=== PATIENT | female | born 1960 | race Caucasian/White ===

== ENCOUNTER → 2024-11-14 15:57 | Outpatient (CLI) | payer OTHER, SELFPAY ==
--- NOTE | 2024-11-14 16:01 | DI.US.S_ITS ---
PROCEDURE: US PELVIC COMPLETE INDICATIONS: MENIPAUSE TECHNIQUE: Real-time scanning was performed of the pelvic organs, with image documentation. Additional endovaginal scanning was necessary due to incomplete visualization of the adnexal and endometrial structures by transabdominal scanning. COMPARISON: None. FINDINGS: Uterus: Uterus is anteverted and normal in size at 6.1 x 4.3 x 3.1 cm. The myometrium is heterogeneous. The endometrium measures 4.3 mm combined thickness. A few scattered myometrial cysts are noted, largest measuring 2 mm. Posterior to the cervix is a heterogeneous solid mass with vascularity measuring 2.2 x 2.2 x 1.1 cm. The cervical canal is thickened and heterogeneous. Ovaries: The right ovary measures 2.7 x 1.0 x 2.1 cm, with a calculated ovarian volume of 3.0 cc. The left ovary measures 1.8 x 0.8 x 1.5 cm, with a calculated ovarian volume of 1.1 cc. The ovaries have a normal sonographic appearance. Calcifications are seen in the bilateral ovaries. Less than 12 follicles can be seen in each ovary. Complex solid/cystic structure with vascularity in the right lower quadrant measuring 4.4 x 3.8 x 1.7 cm. The right ovary appears separate from this lesion. Other: No pathologic free abdominal or pelvic fluid. Postvoid residual of 199 cc. IMPRESSION: Complex right lower quadrant/right adnexal solid/cystic structure measuring up to 4.4 cm. This appears to be separate from the right ovary. Mass posterior to the cervix measuring up to 2.2 cm. Recommend MRI of the pelvis gynecology protocol and gynecology consultation for further evaluation. Postvoid residual of 200 cc, correlate for bladder outlet obstruction. Endometrium is normal in thickness. We strive to produce accurate, complete, and clear reports of imaging services. To assist us in improving patient care, this report was composed using standard report templates and voice recognition software. Therefore, it may contain abnormal punctuation, insertions and/or omissions. Occasional wrong-word or sound-alike substitutions may occur. Though we review the report and make efforts to correct it, we do recommend that the report be read carefully in proper context to recognize any text inaccuracies. Dictated by: Vinay Pate M.D. on 11/15/2024 at 8:23 Approved by: Vinay Pate M.D. on 11/15/2024 at 8:30
== END ==
PROVIDERS: Referring Provider Nurse Practitioner; Visit Provider Nurse Practitioner
DX: R33.9 Retention of urine, unspecified (principal); R19.09 Other intra-abdominal and pelvic swelling, mass and lump; N95.8 Other specified menopausal and perimenopausal disorders
CPT/HCPCS: 76830; 76856

== ENCOUNTER → 2024-11-14 16:01 | Outpatient (CLI) | payer OTHER, SELFPAY ==
--- NOTE | 2024-11-14 16:03 | DI.MG.S_ITS ---
MM screening mammo BI: 11/14/2024. BI-RADS: 2 CLINICAL: 64-year old female for bilateral screening mammogram. Tyrer-Cuzick lifetime risk of 18.9%. Current reported family history of breast cancer: mother. PRIOR EXAMS: 01/2019. MAMMOGRAPHY TECHNIQUE: 2D and 3D (tomosynthesis) digital mammographic views obtained, with additional images as needed for full coverage. Current study was also evaluated with a Computer Aided Detection (CAD) system. DENSITY C. The breasts are heterogeneously dense, which may obscure small masses. MAMMOGRAPHY FINDINGS Right: No suspicious mass, asymmetry, microcalcification, or other abnormality seen. Left: Benign-appearing calcifications noted on the left. There are no suspicious masses, calcifications, or other findings in the breast. IMPRESSION: Right * No evidence of malignancy. Left * No evidence of malignancy with benign findings. RECOMMENDATIONS Bilateral * Annual screening mammography. OVERALL ASSESSMENT CATEGORY BI-RADS-2: Benign. The [employer] recommends annual screening mammography beginning at age 40 for women with average risk of breast cancer. ELECTRONICALLY SIGNED: Oc Kelley M.D. on 11/15/2024 at 07:37:33 AM PT Interpreting Station ID: [id number]
== END ==
PROVIDERS: Referring Provider Family Medicine; Visit Provider Family Medicine
DX: Z12.31 Encounter for screening mammogram for malignant neoplasm of breast (principal); R92.1 Mammographic calcification found on diagnostic imaging of breast; R92.333 Mammographic heterogeneous density, bilateral breasts; Z80.3 Family history of malignant neoplasm of breast
CPT/HCPCS: 77063; 77067

== ENCOUNTER → 2024-11-20 15:30 | Outpatient (CLI) | payer OTHER, SELFPAY ==
--- NOTE | 2024-11-20 16:05 | DI.MRI.S_ITS ---
PROCEDURE: MR PELVIS WO/W CON INDICATIONS: PELVIC MASS TECHNIQUE: Coronal HASTE, sagittal breath-hold T2 FSE; axial T1 FSE with and without fat saturation through the pelvis. Optional long- and short-axis uterine nonbreath-hold T2 FSE through the uterus. Sagittal or axial dynamic VIBE during administration of contrast. Post-contrast axial or coronal VIBE/2-D FLASH with fat saturation from the iliac crests to the symphysis. Optional diffusion weighted imaging and ADC may be performed. COMPARISON: [facility], , US PELVIC COMPLETE, 11/14/2024, 16:22. FINDINGS: Image quality: Diagnostic Lower abdomen: No bowel obstruction or lower abdomen. No pathologic ascites Bladder: Unremarkable Reproductive organs: Endometrium is heterogeneous measuring 4-5 mm in thickness. The junctional zone measures 0.8 cm. More focal endometrial thickening at the fundus with heterogeneity measuring 1 cm (/72). Prominent endocervix measuring 0.7 cm in thickness. Possible 0.6 cm filling defect near the external os (3/13). The posterior uterine mass is a FIGO 5 fibroid measuring 1.9 x 1.4 cm In the right adnexa, there is a 3.7 x 2.9 cm lesion with multiple loculations and enhancing septations (/64). Rectum: Unremarkable Vessels and lymph nodes: No aneurysmal vessel identified. No pathologic lymph nodes by size criteria Pelvic wall: Unremarkable Bones: No aggressive appearing osseous abnormality. IMPRESSION: The right adnexal lesion corresponds to a multiloculated cystic lesion with multiple enhancing septations. No definite solid logical on postcontrast images. MRI O-RADS 3. The posterior uterine lesion corresponds to a FIGO 5 fibroid. Endometrium is heterogeneous and borderline thickened up to 5 mm. There is more focal signal abnormality and enhancement abnormality at the fundus (20/72). This could represent focal endometrial thickening or underlying lesion versus submucosal fibroid. This area is obscured by motion artifact on the ramirez T2 sagittal images. Prominent thickness also seen of the endocervix with a possible 0.6 cm filling defect near the external os. Correlate with any bleeding symptoms and consider sampling if indicated. Other findings above. Dictated by: Bigg Johnson M.D. on 11/21/2024 at 10:45 Approved by: Bigg Johnson M.D. on 11/21/2024 at 11:45
== END ==
PROVIDERS: Referring Provider Family Medicine; Visit Provider Family Medicine
DX: R19.00 Intra-abdominal and pelvic swelling, mass and lump, unspecified site (principal); D25.2 Subserosal leiomyoma of uterus
CPT/HCPCS: 72197; A9579

== ENCOUNTER → 2024-11-26 08:52 | Outpatient (CLI) | payer OTHER, SELFPAY ==
[2024-11-26 11:07] LABS: Cancer Antigen 125 < 5.5 U/mL (0-35)
[2024-11-27 07:09] LABS: Alpha Fetoprotein 4.3 ng/mL (0.0-9.2)
[2024-11-28 11:13] LABS: Human Epididymis Prot 4 59.3 pmol/L (0.0-96.5)
[2024-11-28 13:36] LABS: Estradiol 66.4 pg/mL (0.0-54.7); Estriol,Serum <0.2 ng/mL (.); Estrone,Serum 52 pg/mL (0-125)
== END ==
LOC: LAB 08:53
PROVIDERS: PCP Family Medicine; Referring Provider Obstetrics & Gynecology; Visit Provider Obstetrics & Gynecology
DX: R19.00 Intra-abdominal and pelvic swelling, mass and lump, unspecified site (principal)
CPT/HCPCS: 36415; 82105; 82378; 82670; 82677; 82679; 83520; 84403; 86304; 86305

== ENCOUNTER 2025-01-06 11:57 | Emergency (ER) | payer OTHER, SELFPAY ==
[2025-01-06 13:01] VITALS: BP 149/79; PULSE 68; RESP 18; TEMP 36.6; O2SAT 99; BMI 24.6
--- NOTE | 2025-01-06 13:04 | DI.RAD.S_ITS ---
PROCEDURE: XR CHEST 1V INDICATIONS: Shortness of breath TECHNIQUE: One view of the chest was acquired. COMPARISON: None. FINDINGS: Surgical changes and devices: None. Lungs and pleura: Lungs are clear. No pleural effusions or pneumothorax. Mediastinum: Mediastinal contours appear normal. Heart size is normal. Bones and chest wall: No suspicious bony lesions. Overlying soft tissues appear unremarkable. IMPRESSION: No acute cardiopulmonary pathology. Dictated by: Thomas Saleh M.D. on 01/06/2025 at 14:16 Approved by: Thomas Saleh M.D. on 01/06/2025 at 14:16
--- NOTE | 2025-01-06 13:06 | EKG_ITS ---
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
[2025-01-06 13:32] LABS: Add Manual Diff / Slide Review NO; Hematocrit 43.1 % (36-46); Hemoglobin 15.2 g/dL (12.0-16.0); Lymphocytes Absolute Auto 1800 /uL (1100-4500); Mean Corpuscular HGB Conc 35.1 % (30-36); Mean Corpuscular Hemoglobin 31.4 PG (26-34); Mean Corpuscular Volume 89.3 fL (80-100); Platelet Count 226 X10^3/uL (150-400)
[2025-01-06 13:34] LABS: Lactate (Lactic Acid) 0.9 mmol/L (0.7-2.1)
[2025-01-06 13:35] LABS: Alanine Aminotransferase 25 IU/L (<35); Albumin 4.5 g/dL (3.5-5.0); Albumin Globulin Ratio 1.5 (1.0-2.8); Alkaline Phosphatase 58 U/L (38-126); Blood Urea Nitrogen 8 mg/dL (7-17); Calcium 9.0 mg/dL (8.4-10.2); Carbon Dioxide 26 mmol/L (22-32); Chloride 102 mmol/L (98-107); Estimated Glomerular Filt Rate > 60 mL/min (>60); Globulin 3.1 g/dL (1.7-4.1); Glucose 90 mg/dL (70-99); HEMOLYSIS < 15 (0-50); Potassium 3.9 mmol/L (3.4-5.1); Sodium 135 mmol/L (137-145); Total Protein 7.6 g/dL (6.3-8.2)
[2025-01-06 13:47] LABS: NT-proBNP (BNP-Adult 18+) 65 pg/mL (<125); Troponin I < 0.012 ng/mL (0.01-0.034)
[2025-01-06 13:54] LABS: INR 1.0 (0.9-1.3); Prothrombin Time 11.2 SECONDS (9.4-12.5)
[2025-01-06 17:17] VITALS: BP 141/70; PULSE 60; RESP 16; O2SAT 98
--- NOTE | 2025-01-08 06:17 | ED.SOB ---
HPI - SOB/Dyspnea General Chief Complaint: Shortness of Breath/Dyspnea Stated Complaint: SOB Time Seen by Provider: 01/06/25 18:01 Source: patient Mode of arrival: Ambulatory Related Data Home Medications ?Medication ?Instructions ?Recorded ?Confirmed cyclosporine 0.05 % eye drops in a 1 drp EYE-BOTH BID 07/28/23 01/06/25 dropperette progesterone micronized 200 mg 200 mg PO BEDTIME 11/26/24 01/06/25 capsule azithromycin 250 mg tablet mg PO 01/06/25 01/06/25 Allergies Allergy/AdvReac Type Severity Reaction Status Date / Time morphine AdvReac Intermediate Migraine Verified 01/06/25 13:01 Patient History Medical History (Updated 01/06/25 @ 20:10 by Moira Hoffman RN) Postmenopausal HRT (hormone replacement therapy) Postmenopausal bleeding Pelvic mass in female Social History Smoking Status: Never smoker Smoking Status: Never smoker Exam Initial Vital Signs Initial Vital Signs: Vital Signs Temperature 97.8 F 01/06/25 13:01 Pulse Rate 68 01/06/25 13:01 Respiratory Rate 18 01/06/25 13:01 Blood Pressure 149/79 H 01/06/25 13:01 Pulse Oximetry 99 01/06/25 13:01 Oxygen Delivery Method Room Air 01/06/25 13:01 MDM - SOB/Dyspnea Lab Data 01/06/25 13:09 01/06/25 13:09 Labs: Lab Results 01/06/25 Range/Units 13:09 WBC 7.5 (4.5-11.0) X10^3/uL RBC 4.83 (4.0-5.2) X10^6/uL Hgb 15.2 (12.0-16.0) g/dL Hct 43.1 (36-46) % MCV 89.3 (80-100) fL MCH 31.4 (26-34) PG MCHC 35.1 (30-36) % RDW 13.1 (11.6-14.8) % Plt Count 226 (150-400) X10^3/uL Neut % (Auto) 66.8 (50-75) % Lymph % (Auto) 23.7 L (25-40) % [place] % (Auto) 6.4 (3-14) % Eos % (Auto) 2.3 (2-4) % Baso % (Auto) 0.8 (0-2) % Neut # (Auto) 5000 (1575-3815) /uL Lymph # (Auto) 1800 (8215-9659) /uL [place] # (Auto) 500 (0-900) /uL Eos # (Auto) 200 (0-450) /uL Baso # (Auto) 100 (0-100) /uL PT 11.2 (9.4-12.5) SECONDS INR 1.0 (0.9-1.3) Sodium 135 L (137-145) mmol/L Potassium 3.9 (3.4-5.1) mmol/L Chloride 102 (98-107) mmol/L Carbon Dioxide 26 (22-32) mmol/L BUN 8 (7-17) mg/dL Creatinine 0.68 (0.52-1.04) mg/dL Estimated GFR > 60 (>60) mL/min BUN/Creatinine Ratio 11.8 (6-22) Glucose 90 (70-99) mg/dL Lactate 0.9 (0.7-2.1) mmol/L Calcium 9.0 (8.4-10.2) mg/dL Total Bilirubin 0.7 (0.2-1.3) mg/dL AST 29 (14-36) IU/L ALT 25 (<35) IU/L Alkaline Phosphatase 58 (38-126) U/L Troponin I < 0.012 (0.01-0.034) ng/mL NT-Pro-B Natriuret Pep 65 (<125) pg/mL Total Protein 7.6 (6.3-8.2) g/dL Albumin 4.5 (3.5-5.0) g/dL Globulin 3.1 (1.7-4.1) g/dL Albumin/Globulin Ratio 1.5 (1.0-2.8) Discharge Plan Departure Patient Disposition: Left Without Being Seen Clinical Impression: Patient left without being seen Prescriptions: No Action cyclosporine 0.05 % dropperette 1 drp EYE-BOTH BID azithromycin 250 mg tablet PO progesterone micronized 200 mg capsule 200 mg PO BEDTIME
== END 2025-01-06 20:10 | disposition left against medical advice (07) ==
PROVIDERS: Family Medicine; Emergency Provider Family Medicine; PCP Family Medicine
DX: R05.9 Cough, unspecified (principal); R07.89 Other chest pain; R11.0 Nausea; R53.83 Other fatigue
CPT/HCPCS: 36415; 71045; 80053; 83605; 83880; 84484; 85025; 85610; 93005; 99283

== ENCOUNTER → 2025-01-08 09:59 | Outpatient (CLI) | payer OTHER, SELFPAY ==
[2025-01-08 11:07] LABS: Add Manual Diff / Slide Review NO; Hematocrit 43.2 % (36-46); Hemoglobin 15.1 g/dL (12.0-16.0); Lymphocytes Absolute Auto 1600 /uL (1100-4500); Mean Corpuscular HGB Conc 34.9 % (30-36); Mean Corpuscular Hemoglobin 31.5 PG (26-34); Mean Corpuscular Volume 90.4 fL (80-100); Platelet Count 236 X10^3/uL (150-400)
[2025-01-08 11:47] LABS: TSH w/ Reflex to FT4 2.10 uIU/mL (0.47-4.68)
== END ==
PROVIDERS: PCP Family Medicine; Referring Provider Family Medicine; Visit Provider Family Medicine
DX: R06.02 Shortness of breath (principal); R20.2 Paresthesia of skin; R29.2 Abnormal reflex
CPT/HCPCS: 36415; 84443; 85025; 85379; 85651; 86140

== ENCOUNTER 2025-05-16 13:26 | Emergency (ER) | payer OTHER, SELFPAY ==
[2025-05-16] VITALS (21 sets, daily range): BP systolic 106–139; BP diastolic 57–73; PULSE 58–74; RESP 17–34; TEMP 36.6; O2SAT 93–98; BMI 25.1
--- NOTE | 2025-05-16 13:33 | EKG_ITS ---
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
--- NOTE | 2025-05-16 13:38 | DI.RAD.S_ITS ---
PROCEDURE: XR CHEST 1V INDICATIONS: Chest Pain TECHNIQUE: One view of the chest was acquired. COMPARISON: [facility], CR, XR CHEST 1V, 01/06/2025, 13:51. FINDINGS: Surgical changes and devices: None. Lungs and pleura: Lungs are clear. No pleural effusions or pneumothorax. Mediastinum: Mediastinal contours appear normal. Heart size is normal. Bones and chest wall: No suspicious bony lesions. Age-appropriate bony degenerative changes are seen. Overlying soft tissues appear unremarkable. IMPRESSION: Single-view chest within normal limits, similar to prior. Dictated by: Andreas Torres M.D. on 05/16/2025 at 12:52 Approved by: Andreas Torres M.D. on 05/16/2025 at 12:52
[2025-05-16 13:56] LABS: Add Manual Diff / Slide Review NO; Hematocrit 43.7 % (36-46); Hemoglobin 15.1 g/dL (12.0-16.0); Lymphocytes Absolute Auto 1600 /uL (1100-4500); Mean Corpuscular HGB Conc 34.6 % (30-36); Mean Corpuscular Hemoglobin 30.5 PG (26-34); Mean Corpuscular Volume 88.2 fL (80-100); Platelet Count 230 X10^3/uL (150-400)
[2025-05-16 14:05] LABS: INR 1.0 (0.9-1.3); Prothrombin Time 10.9 SECONDS (9.4-12.5)
[2025-05-16] MEDS: ASPIRIN 81 MG CHEW TAB 324 MG PO (14:06)
[2025-05-16 14:07] LABS: PTT Partial Thromboplastin Tim 27 SECONDS (25.1-36.5)
[2025-05-16 14:11] LABS: Alanine Aminotransferase 53 IU/L (<35); Albumin 4.7 g/dL (3.5-5.0); Albumin Globulin Ratio 1.4 (1.0-2.8); Alkaline Phosphatase 46 U/L (38-126); Blood Urea Nitrogen 12 mg/dL (7-17); Calcium 9.0 mg/dL (8.4-10.2); Carbon Dioxide 18 mmol/L (22-32); Chloride 105 mmol/L (98-107); Creatine Kinase 47 U/L (30-135); Estimated Glomerular Filt Rate > 60 mL/min (>60); Globulin 3.3 g/dL (1.7-4.1); Glucose 133 mg/dL (70-99); Lipase 89 U/L (23-300); Magnesium 2.2 mg/dL (1.6-2.3); Potassium 4.4 mmol/L (3.4-5.1); Sodium 135 mmol/L (137-145); Total Protein 8.0 g/dL (6.3-8.2)
[2025-05-16 14:21] LABS: NT-proBNP (BNP-Adult 18+) 25 pg/mL (<125)
[2025-05-16 14:22] LABS: HEMOLYSIS 92 (0-50)
[2025-05-16 14:23] LABS: Troponin I 0.013 ng/mL (0.01-0.034)
--- NOTE | 2025-05-16 16:53 | ED.CHESTPAIN ---
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 4 days ago began having chest pain. Had an EKG 2 days ago that was unremarkable. TO control pain would need to lay on bed and folucs on calmin ther heart. Today exhausted with pain recurrent this afternoon. Pain is described as super tight heart muscle and very uncomfortable dull and heaviness after that. Bothers her if talking too much and not intentionally breathing. Notes she doesn't move too fast with her guillian barre so isn't sure if increased activity increases pain. Related Data Home Medications ?Medication ?Instructions ?Recorded ?Confirmed cyclosporine 0.05 % eye drops in a 1 drp EYE-BOTH BID 07/28/23 01/06/25 dropperette progesterone micronized 200 mg 200 mg PO BEDTIME 11/26/24 01/06/25 capsule azithromycin 250 mg tablet mg PO 01/06/25 01/06/25 Allergies Allergy/AdvReac Type Severity Reaction Status Date / Time morphine AdvReac Intermediate Migraine Verified 05/16/25 13:40 Review of Systems Review of Systems Narrative: Pertinent positive and negative findings as per HPI Patient History Medical History Abnormal pelvic ultrasound Postmenopausal HRT (hormone replacement therapy) Postmenopausal bleeding Pelvic mass in female Exam Initial Vital Signs Initial Vital Signs: Vital Signs Temperature 97.9 F 05/16/25 13:40 Pulse Rate 74 05/16/25 13:40 Respiratory Rate 18 05/16/25 13:40 Blood Pressure 124/68 05/16/25 13:40 Pulse Oximetry 98 05/16/25 13:40 Oxygen Delivery Method Room Air 05/16/25 13:40 General: Older appearing, fatigued no acute distress HEENT: Moist mucous membranes, normal sclera with reactive pupils, Respiratory: Lungs are clear to auscultation, no wheezing no rales no rhonchi. Full and symmetrical air movement Cardiac: Regular rate and rhythm no murmurs no bruits Chest: Minor reproducible tenderness in the lower left sternal border Abdomen: Soft, mild tenderness in the epigastrium radiating up into the substernal area. No rebound or guarding Skin: Warm and dry, no rashes Neurologic: Grossly neurologically intact with no obvious asymmetries or abnormalities Extremities: No trauma, well perfused Psych: Cooperative, appropriate insight and affect Course Orders Ordered: ED Orders 05/16/25 13:33 EKG-12 Lead Stat 05/16/25 13:35 Complete Blood Count AUTO DIFF Stat Comprehensive Metabolic Panel Stat Lipase Stat Magnesium Stat NT-proBNP (BNP-Adult 18+) Stat PTT Partial Thromboplastin Corey Stat Prothrombin Time INR Stat Troponin & CK Cardiac Panel Stat 05/16/25 13:38 XR chest 1V Stat 05/16/25 16:58 Troponin I Stat Discontinued Medications Aspirin (Aspirin 81 Mg Chew Tab) 324 mg PO NOW ONE Stop: 05/16/25 13:39 Last Admin: 05/16/25 14:06 Dose: 324 mg Documented By: CTS Vital Signs Vital signs: Vital Signs - 8 hr 05/16/25 13:40 05/16/25 14:18 05/16/25 14:30 Temperature 97.9 F Pulse Rate 74 63 Respiratory Rate 18 19 Blood Pressure 124/68 117/65 Pulse Oximetry 98 97 Oxygen Delivery Method Room Air 05/16/25 14:30 05/16/25 14:45 05/16/25 14:45 Temperature Pulse Rate 61 63 Respiratory Rate 20 21 Blood Pressure 119/67 Pulse Oximetry 97 95 Oxygen Delivery Method 05/16/25 15:00 05/16/25 15:00 05/16/25 15:15 Temperature Pulse Rate 62 Respiratory Rate 21 Blood Pressure 117/66 116/65 Pulse Oximetry 98 Oxygen Delivery Method 05/16/25 15:15 05/16/25 15:30 05/16/25 15:30 Temperature Pulse Rate 62 60 Respiratory Rate 17 19 Blood Pressure 111/60 Pulse Oximetry 98 98 Oxygen Delivery Method 05/16/25 15:45 05/16/25 15:45 05/16/25 16:00 Temperature Pulse Rate 60 Respiratory Rate 17 Blood Pressure 116/66 111/63 Pulse Oximetry 97 Oxygen Delivery Method 05/16/25 16:00 Temperature Pulse Rate 58 L Respiratory Rate 17 Blood Pressure Pulse Oximetry 97 Oxygen Delivery Method MDM - Chest Pain Lab Data 05/16/25 13:35 05/16/25 13:35 Labs: Lab Results 05/16/25 Range/Units 13:35 WBC 6.5 (4.5-11.0) X10^3/uL RBC 4.96 (4.0-5.2) X10^6/uL Hgb 15.1 (12.0-16.0) g/dL Hct 43.7 (36-46) % MCV 88.2 (80-100) fL MCH 30.5 (26-34) PG MCHC 34.6 (30-36) % RDW 13.3 (11.6-14.8) % Plt Count 230 (150-400) X10^3/uL Neut % (Auto) 65.6 (50-75) % Lymph % (Auto) 24.5 L (25-40) % [place] % (Auto) 7.8 (3-14) % Eos % (Auto) 1.2 L (2-4) % Baso % (Auto) 0.9 (0-2) % Neut # (Auto) 4200 (3706-7220) /uL Lymph # (Auto) 1600 (5957-7050) /uL [place] # (Auto) 500 (0-900) /uL Eos # (Auto) 100 (0-450) /uL Baso # (Auto) 100 (0-100) /uL PT 10.9 (9.4-12.5) SECONDS INR 1.0 (0.9-1.3) APTT 27 (25.1-36.5) SECONDS Sodium 135 L (137-145) mmol/L Potassium 4.4 (3.4-5.1) mmol/L Chloride 105 (98-107) mmol/L Carbon Dioxide 18 L (22-32) mmol/L BUN 12 (7-17) mg/dL Creatinine 0.82 (0.52-1.04) mg/dL Estimated GFR > 60 (>60) mL/min BUN/Creatinine Ratio 14.6 (6-22) Glucose 133 H (70-99) mg/dL Calcium 9.0 (8.4-10.2) mg/dL Magnesium 2.2 (1.6-2.3) mg/dL Total Bilirubin 0.7 (0.2-1.3) mg/dL AST 56 H (14-36) IU/L ALT 53 H (<35) IU/L Alkaline Phosphatase 46 (38-126) U/L Total Creatine Kinase 47 (30-135) U/L Troponin I 0.013 (0.01-0.034) ng/mL NT-Pro-B Natriuret Pep 25 (<125) pg/mL Total Protein 8.0 (6.3-8.2) g/dL Albumin 4.7 (3.5-5.0) g/dL Globulin 3.3 (1.7-4.1) g/dL Albumin/Globulin Ratio 1.4 (1.0-2.8) Lipase 89 (23-300) U/L MDM Narrative Medical decision making narrative: CC: Chest pain Complicating co-morbidities: Guillain-[place] Data collected from: patient Differential considered: Side effects of medications, unstable angina, stable angina, GI/esophagitis complaints, consequences of her Guillain-[place] Exam documented above, pertinent findings include: Exam is relatively benign. She does have some tenderness in the lower sternum and the epigastrium Lab Test results independently reviewed as above. Pertinent findings: CBC shows no abnormality Chemistries are reassuring, AST and ALT are slightly elevated at 56 and 53 respectively. Alk-phos and bilirubin are normal First and 2nd troponins are undetectable Independently reviewed EKG: Sinus rhythm at a rate of 75 without acute ischemic changes Imaging studies independently reviewed: Chest x-ray is unremarkable Treatments: Aspirin, GI cocktail Re-evaluations: Patient notes that her body felt much more calm with a GI cocktail Discussion: 65-year-old woman with Guillain-[place] and multiple side effects and symptoms from this. He is wondering if her gabapentin might actually be causing additional problems and between her and her physicians they have been talking about weaning that down. Interestingly, skipping her 200 mg mid day dose of gabapentin seems to leave her feeling more calm has were getting ready for discharge at 7:00 p.m. this evening. There was no evidence of acute coronary syndrome. The Maalox and lidocaine cocktail seemed to help with the symptoms. That along with physical exam suggests that her chest pain is likely more GI related. We will have her try Protonix for 2 weeks and then as needed to see if this helps with the symptoms. We talked about decreasing her gabapentin and a told her that decreasing at a rate that her body tolerated, some people need a very slow taper, other people can tolerate it tapered off very quickly, is what she will need. We will ask her to follow up with her primary care physician and reassurance is given. HEART score= 2 Discharge Plan Departure Patient Disposition: Home Clinical Impression: Chest pain due to GERD Instructions: DI for Atypical Chest Pain Activity Restrictions/Additional Instructions: Thank you for coming in today Your workup does not suggest that your chest pain is related to your heart, pneumonia, electrolyte abnormalities or significant infection With the Maalox cocktail, your symptoms seemed to improve. This suggests that you are irritation is in your esophagus and stomach. I am going to give you a prescription for omeprazole to use for stomach acid reduction. I am going to suggest 2 weeks of once a day dosing and then daily as needed for symptoms returning after that. Maalox is available [id number], you can also try Tums. I went continue with the magnesium/calm as well as your MiraLax to help prevent constipation Please do follow up with your primary care physician. If you find that you are getting worse or develop any new symptoms, please feel free to return to the emergency department for further evaluation. Prescriptions: No Action cyclosporine 0.05 % dropperette 1 drp EYE-BOTH BID azithromycin 250 mg tablet PO progesterone micronized 200 mg capsule 200 mg PO BEDTIME Referrals: Jonathan Melgoza MD [Primary Care Provider, Family Practice] Stand Alone Forms: Patient Portal/API
[2025-05-16] MEDS: MAG HYDROX/ALUMINUM/SIMETH SUS 30 ML, LIDOCAINE VISCOUS 2% 15 ML PO (17:42)
[2025-05-16 17:47] LABS: Troponin I < 0.012 ng/mL (0.01-0.034)
== END 2025-05-16 19:05 | disposition home or self-care (01) ==
PROVIDERS: Emergency Medicine; Emergency Provider Emergency Medicine; PCP Family Medicine
DX: R07.89 Other chest pain (principal); K21.9 Gastro-esophageal reflux disease without esophagitis; G61.0 Guillain-Barre syndrome
CPT/HCPCS: 36415; 71045; 80053; 82550; 83690; 83735; 83880; 84484; 85025; 85610; 85730; 93005; 93010; 99284